=== PATIENT | female | born 1940 | race African-American/Black ===

== ENCOUNTER 2019-10-01 05:20 | Day surgery (SDC) | payer MEDICARE, MEDICAID ==
[~2019-10-01] VITALS: Ht 160 cm; Wt 49.0 kg
[~2019-10-01 05:20] MED LIST: AMLO-150 PO; ASPI81TA45 PO; ATOR10TA9 PO; HYDR-3237 PO; LANS15CA5 PO
[2019-10-01 06:16] VITALS: BP 141/93
[2019-10-01] MEDS ORDERED: LACTATED RINGERS 1,000 ML IV SCH (06:18)
[2019-10-01] MEDS ORDERED: CHLORHEXIDINE 15 ML UDC MM ONE (06:30)
[2019-10-01] MEDS ORDERED: LIDOCAINE-MPF 1%, 2ML INFIL ONE (06:30)
[2019-10-01] MEDS ORDERED: PROPOFOL 10 MG/ML, 20ML ONE ×2 (07:11→08:26)
[2019-10-01] MEDS ORDERED: OXYcodone 5 MG/5 ML ORAL.SOL UDC PO PRN (07:30)
[2019-10-01] MEDS ORDERED: LABETALOL 5MG/ML, 20ML IV PRN (07:30)
[2019-10-01] MEDS ORDERED: ALBUTEROL SULFATE 2.5 MG/3 ML NPPB PRN (07:30)
[2019-10-01] MEDS ORDERED: ONDANSETRON 2MG/ML, 2ML IVPush PRN (07:30)
[2019-10-01] MEDS ORDERED: FENTANYL PF 100 MCG/2ML IV PRN (07:30)
[2019-10-01] MEDS ORDERED: ACETAMINOPHEN 325 MG TABLET PO PRN (07:30)
[2019-10-01] MEDS ORDERED: hydrALAzine 20 MG/ML, 1ML IV PRN (07:30)
[2019-10-01] MEDS ORDERED: PIPERACILLIN/TAZO/PMX 3.375GM 50 ML ONE (08:21)
== END 2019-10-01 10:10 | disposition home or self-care (01) ==
LOC: OUT 05:20
PROVIDERS: ATTEND Internal Medicine Gastroenterology
DX: R93.3 Abnormal findings on diagnostic imaging of other parts of digestive tract (principal); Z11.59 Encounter for screening for other viral diseases; K86.1 Other chronic pancreatitis; K29.50 Unspecified chronic gastritis without bleeding; K31.89 Other diseases of stomach and duodenum; K21.0 Gastro-esophageal reflux disease with esophagitis; I10 Essential (primary) hypertension; E78.5 Hyperlipidemia, unspecified; J44.9 Chronic obstructive pulmonary disease, unspecified; I69.351 Hemiplegia and hemiparesis following cerebral infarction affecting right dominant side; Z79.899 Other long term (current) drug therapy; Z85.038 Personal history of other malignant neoplasm of large intestine
CPT/HCPCS: 43239; 43242; 88172; 88173; 88177; 88305; 88307; 93005; J2543; J2704; U0001

== ENCOUNTER 2019-10-14 17:54 | Inpatient (IN) | payer MEDICARE, MEDICAID ==
[~2019-10-14] VITALS: Ht 160 cm; Wt 50.7 kg
--- NOTE | 2019-10-14 18:30 | NUR ---
THIS IS A 79 YO FEMALE COMING IN WITH C/O WHITE/PALE STOOL WITH GENERALIZED ABD PAIN, DENIES N/V/CONSTIPATION. PATIENT HAS LABS DONE THIS AM AT [facility] SUGGESTING BILIARY BLOCKAGE OR GALLSTONES. PATIENT A&OX4, MONITORING IN PLACE, CALL LEON[facility] IN [facility].
[2019-10-14] MEDS ORDERED: SODIUM CHLORIDE 0.9% 1,000 ML IV ONE (18:40)
[2019-10-14] MEDS ORDERED: MORPHINE SULFATE 4 MG/ML, 1ML ONE (18:47)
[2019-10-14] MEDS ORDERED: ONDANSETRON 2MG/ML, 2ML ONE (18:47)
[2019-10-14 18:50] LABS: BASOPHILS # (AUTO) 0.04 x10^3/uL (0-0.1); BASOPHILS % (AUTO) 1 % (0-1); EOSINOPHILS # (AUTO) 0.19 x10^3/uL (0-0.4); EOSINOPHILS % (AUTO) 3 % (1-7); LYMPHOCYTES # (AUTO) 1.75 x10^3/uL (1-3.4); LYMPHOCYTES % (AUTO) 26 % (22-44); MD NO; MEAN CORPUSCULAR HEMOGLOBIN 31.4 pg (27.0-34.8); MEAN CORPUSCULAR HGB CONC 33.2 g/dL (32.4-35.8); MEAN CORPUSCULAR VOLUME 94.8 fL (80-100); MEAN PLATELET VOLUME 9.1 fL (7.4-10.4); MONOCYTES # (AUTO) 0.71 x10^3/uL (0.2-0.8); MONOCYTES % (AUTO) 11 % (2-9); NEUTROPHILS # (AUTO) 3.99 x10^3/uL (1.8-6.8); NEUTROPHILS % (AUTO) 60 % (42-75); PLATELET COUNT 311 x10^3/uL (130-400); RED CELL DISTRIBUTION WIDTH 15.2 % (9.6-15.2)
[2019-10-14] MEDS ORDERED: ONDANSETRON 2MG/ML, 2ML IVPush ONE (19:00)
[2019-10-14] MEDS ORDERED: MORPHINE SULFATE 4 MG/ML, 1ML IVPush PRN (19:00)
[2019-10-14] MEDS ORDERED: SODIUM CHLORIDE FLUSH 10ML SYR IVF ONE ×2 (19:00→19:30)
[2019-10-14 19:04] LABS: ALANINE AMINOTRANSFERASE 196 U/L (12-78); ALBUMIN 3.3 g/dL (3.4-5.0); ANION GAP 7 mmol/L (5-15); CALCIUM 9.5 mg/dL (8.5-10.1); CHLORIDE 107 mmol/L (98-107); CREATININE 1.19 mg/dL (0.55-1.02)
[2019-10-14 19:07] LABS: ALKALINE PHOSPHATASE 294 U/L (45-117); TOTAL PROTEIN 7.4 g/dL (6.4-8.2)
--- NOTE | 2019-10-14 19:10 | NUR ---
FERMÍN MONTES TO PLACE PIV. IVF STARTED. PATIENT MEDFICATED PER [facility]
--- NOTE | 2019-10-14 19:12 | NUR ---
2ND ATTEMPT FOR ULTRASOUND, PT UNAVAILABLE aa
--- NOTE | 2019-10-14 19:55 | NUR ---
ULTRASOUND IN ROOM
--- NOTE | 2019-10-14 20:29 | NUR ---
PATIENT RESTING ON GURNEY, RESPIRATIONS EVEN AND UNLABORED. VSS, NADN
[2019-10-14] MEDS ORDERED: ENOXAPARIN 40 MG/0.4 ML SQ SCH (21:30)
[2019-10-14] MEDS ORDERED: LACTATED RINGERS 1,000 ML IV SCH (21:30)
[2019-10-14] MEDS ORDERED: hydrALAzine 20 MG/ML, 1ML IVPush PRN (21:30)
[2019-10-14] MEDS ORDERED: ACETAMINOPHEN 325 MG TABLET PO PRN (21:30)
[2019-10-14 21:36] LABS: ALBUMIN 3.3 g/dL (3.4-5.0); BILIRUBIN, DIRECT 2.4 mg/dL (0.1-0.2)
[2019-10-14 21:38] LABS: BILIRUBIN,TOTAL 3.9 mg/dL (0.2-1.0); TOTAL PROTEIN 7.4 g/dL (6.4-8.2)
--- NOTE | 2019-10-14 22:13 | NUR ---
ATTEMPTED TO CALL REPORT X1
[2019-10-14 22:23] LABS: BILIRUBIN,INDIRECT 1.5 mg/dL (0.0-2.0)
--- NOTE | 2019-10-14 22:37 | NUR ---
TASK RN: REPORT TO FERMÍN LOPEZ ON FLOOR. PT PREPARED FOR TRANSPORT.
[2019-10-14] MEDS: NICOTINE 14MG/24 HR PATCH.TD24 TD SCH (23:24)
[2019-10-14] MEDS: NS + 20MEQ KCL 1,000 ML IV SCH (23:55)
[2019-10-15 00:07] VITALS: BP 144/80
[2019-10-15] MEDS ORDERED: ALBUTEROL SULFATE 2.5 MG/3 ML NPPB PRN (01:00)
[2019-10-15] MEDS: NS + 20MEQ KCL 1,000 ML IV SCH ×2 (05:53→21:03)
[2019-10-15 06:07] LABS: BASOPHILS # (AUTO) 0.05 x10^3/uL (0-0.1); BASOPHILS % (AUTO) 1 % (0-1); EOSINOPHILS # (AUTO) 0.21 x10^3/uL (0-0.4); EOSINOPHILS % (AUTO) 4 % (1-7); LYMPHOCYTES # (AUTO) 1.81 x10^3/uL (1-3.4); LYMPHOCYTES % (AUTO) 34 % (22-44); MD NO; MEAN CORPUSCULAR HEMOGLOBIN 31.5 pg (27.0-34.8); MEAN CORPUSCULAR HGB CONC 32.5 g/dL (32.4-35.8); MEAN CORPUSCULAR VOLUME 96.8 fL (80-100); MONOCYTES # (AUTO) 0.54 x10^3/uL (0.2-0.8); MONOCYTES % (AUTO) 10 % (2-9); NEUTROPHILS # (AUTO) 2.81 x10^3/uL (1.8-6.8); NEUTROPHILS % (AUTO) 52 % (42-75); PLATELET COUNT 298 x10^3/uL (130-400); RED BLOOD COUNT 4.27 x10^6/uL (3.82-5.3); RED CELL DISTRIBUTION WIDTH 15.2 % (9.6-15.2)
[2019-10-15 06:19] LABS: CHLORIDE 114 mmol/L (98-107)
[2019-10-15 06:32] LABS: ALANINE AMINOTRANSFERASE 171 U/L (12-78); ALBUMIN 2.9 g/dL (3.4-5.0); ALKALINE PHOSPHATASE 265 U/L (45-117); ANION GAP 9 mmol/L (5-15); BILIRUBIN,TOTAL 3.4 mg/dL (0.2-1.0); CALCIUM 8.6 mg/dL (8.5-10.1); CREATININE 1.12 mg/dL (0.55-1.02); TOTAL PROTEIN 6.8 g/dL (6.4-8.2)
[2019-10-15 06:40] VITALS: BP 125/85
[2019-10-15] MEDS ORDERED: PANTOPRAZOLE 40 MG IV IVPush SCH (07:30)
[2019-10-15] MEDS ORDERED: HEPARIN 5,000 UNITS/ML, 1ML SQ SCH (08:30)
[2019-10-15] MEDS ORDERED: MAGNESIUM SULFATE PMX 2GM/50ML 50 ML IV ONE (08:30)
[2019-10-15] MEDS ORDERED: GADOTERATE 7.5 MMOL/15 ML VIAL ONE (09:11)
[2019-10-15] MEDS: morphine SULFATE 10 MG/ML, 1ML IVPush PRN ×2 (15:06→21:03)
[2019-10-15 15:13] VITALS: BP 155/89
[2019-10-15] MEDS: NICOTINE 14MG/24 HR PATCH.TD24 TD SCH (21:03)
[2019-10-15 21:10] VITALS: BP 152/87
[2019-10-16 01:32] VITALS: BP 145/80
[2019-10-16] MEDS: NS + 20MEQ KCL 1,000 ML IV SCH (05:10)
[2019-10-16 06:10] LABS: BASOPHILS # (AUTO) 0.04 x10^3/uL (0-0.1); BASOPHILS % (AUTO) 1 % (0-1); EOSINOPHILS # (AUTO) 0.14 x10^3/uL (0-0.4); EOSINOPHILS % (AUTO) 2 % (1-7); LYMPHOCYTES % (AUTO) 21 % (22-44); MD NO; MEAN CORPUSCULAR HEMOGLOBIN 31.5 pg (27.0-34.8); MEAN CORPUSCULAR HGB CONC 32.9 g/dL (32.4-35.8); MEAN CORPUSCULAR VOLUME 95.7 fL (80-100); MEAN PLATELET VOLUME 9.6 fL (7.4-10.4); MONOCYTES # (AUTO) 0.52 x10^3/uL (0.2-0.8); MONOCYTES % (AUTO) 9 % (2-9); NEUTROPHILS # (AUTO) 3.79 x10^3/uL (1.8-6.8); NEUTROPHILS % (AUTO) 67 % (42-75); PLATELET COUNT 243 x10^3/uL (130-400); RED BLOOD COUNT 4.23 x10^6/uL (3.82-5.3); RED CELL DISTRIBUTION WIDTH 14.9 % (9.6-15.2)
[2019-10-16 06:19] LABS: CHLORIDE 109 mmol/L (98-107)
[2019-10-16 06:26] LABS: ALANINE AMINOTRANSFERASE 150 U/L (12-78); ALBUMIN 2.9 g/dL (3.4-5.0); ALKALINE PHOSPHATASE 268 U/L (45-117); ANION GAP 11 mmol/L (5-15); BILIRUBIN,TOTAL 3.8 mg/dL (0.2-1.0); CALCIUM 8.8 mg/dL (8.5-10.1); CREATININE 0.85 mg/dL (0.55-1.02); TOTAL PROTEIN 6.8 g/dL (6.4-8.2)
[2019-10-16 07:03] VITALS: BP 138/84
[2019-10-16] MEDS: morphine SULFATE 10 MG/ML, 1ML IVPush PRN ×3 (07:46→19:58)
[2019-10-16 12:30] VITALS: BP 163/80
[2019-10-16] MEDS: SODIUM CHLORIDE 0.9% 1,000 ML IV SCH ×2 (15:25→23:15)
[2019-10-16 19:07] VITALS: BP_SYST 166; BP_SYST 170; BP_DIAS 100; BP_DIAS 93
[2019-10-16 20:18] VITALS: BP 157/89
[2019-10-16] MEDS: NICOTINE 14MG/24 HR PATCH.TD24 TD SCH (22:11)
[2019-10-17 00:36] VITALS: BP 155/95
[2019-10-17] MEDS: morphine SULFATE 10 MG/ML, 1ML IVPush PRN ×3 (03:00→19:55)
[2019-10-17 06:46] VITALS: BP 131/85
[2019-10-17] MEDS: SODIUM CHLORIDE 0.9% 1,000 ML IV SCH ×3 (07:00→22:58)
[2019-10-17] MEDS ORDERED: FENTANYL PF 100 MCG/2ML ONE (07:15)
[2019-10-17] MEDS ORDERED: OXYcodone 5 MG/5 ML ORAL.SOL UDC PO PRN (07:30)
[2019-10-17] MEDS ORDERED: LORazepam 2 MG/ML, 1ML IVPush PRN (07:30)
[2019-10-17] MEDS ORDERED: ALBUTEROL SULFATE 2.5 MG/3 ML NPPB PRN (07:30)
[2019-10-17] MEDS ORDERED: PROMETHAZINE 25 MG/ML, 1ML IVPush PRN (07:30)
[2019-10-17] MEDS ORDERED: morphine SULFATE 10 MG/ML, 1ML IVPush PRN (07:30)
[2019-10-17] MEDS ORDERED: LABETALOL 5MG/ML, 20ML IV PRN (07:30)
[2019-10-17] MEDS ORDERED: FENTANYL PF 100 MCG/2ML IV PRN (07:30)
[2019-10-17] MEDS ORDERED: MEPERIDINE/PF 25MG/0.5ML IVPush PRN (07:30)
[2019-10-17] MEDS ORDERED: hydrALAzine 20 MG/ML, 1ML IV PRN (07:30)
[2019-10-17] MEDS ORDERED: SUCCINYLCHOLINE 20 MG/ML, 10ML ONE (07:40)
[2019-10-17] MEDS ORDERED: DEXAMETHASONE 4 MG/ML, 1ML ONE ×2 (07:40→08:20)
[2019-10-17] MEDS ORDERED: PROPOFOL 10 MG/ML, 20ML ONE (08:20)
[2019-10-17] MEDS ORDERED: LIDOCAINE-MPF 2% ,5ML ONE (08:20)
[2019-10-17] MEDS ORDERED: ONDANSETRON 2MG/ML, 2ML ONE (08:20)
[2019-10-17] MEDS ORDERED: INDOMETHACIN 50 MG SUPP.RECT ONE (09:18)
[2019-10-17] MEDS ORDERED: OMNIPAQUE 350 MG/ML, 50 ML BOTTLE ONE (09:25)
[2019-10-17] MEDS ORDERED: INDOMETHACIN 50 MG SUPP.RECT PR ONE (10:00)
[2019-10-17] MEDS: AMLODIPINE 5 MG TABLET PO SCH (11:43)
[2019-10-17 14:40] VITALS: BP 148/90
[2019-10-17] MEDS: ONDANSETRON 2MG/ML, 2ML IVPush PRN (15:28)
[2019-10-17 19:07] VITALS: BP 146/94
[2019-10-17] MEDS ORDERED: ONDANSETRON 2MG/ML, 2ML IVPush ONE (19:35)
[2019-10-17] MEDS ORDERED: CALCIUM CARBONATE 500 MG TAB.CHEW PO ONE (19:35)
[2019-10-17] MEDS: ATORVASTATIN 10 MG TABLET PO SCH (20:33)
[2019-10-17] MEDS: NICOTINE 14MG/24 HR PATCH.TD24 TD SCH (20:34)
[2019-10-18 00:25] VITALS: BP 113/71
[2019-10-18] MEDS: ONDANSETRON 2MG/ML, 2ML IVPush PRN (04:04)
[2019-10-18 09:11] VITALS: BP 134/90
[2019-10-18 09:32] VITALS: BP 134/90
[2019-10-18] MEDS: SODIUM CHLORIDE 0.9% 1,000 ML IV SCH (09:52)
[2019-10-18] MEDS: AMLODIPINE 5 MG TABLET PO SCH (09:52)
[2019-10-18] MEDS: morphine SULFATE 10 MG/ML, 1ML IVPush PRN (10:05)
[2019-10-18 11:22] LABS: ALBUMIN 2.6 g/dL (3.4-5.0)
[2019-10-18 11:27] LABS: BILIRUBIN, DIRECT 1.2 mg/dL (0.1-0.2); BILIRUBIN,INDIRECT 1.3 mg/dL (0.0-2.0); BILIRUBIN,TOTAL 2.5 mg/dL (0.2-1.0); TOTAL PROTEIN 6.3 g/dL (6.4-8.2)
[2019-10-18] MEDS ORDERED: MAGNESIUM SULFATE PMX 2GM/50ML 50 ML IV ONE (14:00)
[2019-10-18] MEDS ORDERED: ALUMINUM/MAG/SIMETHICONE 30 ML UDC PO PRN (15:00)
[2019-10-18] MEDS: OXYcodone IR 5MG TABLET PO PRN ×2 (15:20→18:41)
[2019-10-18 18:50] VITALS: BP 121/82
[2019-10-18] MEDS: NICOTINE 14MG/24 HR PATCH.TD24 TD SCH (20:07)
[2019-10-18] MEDS: ATORVASTATIN 10 MG TABLET PO SCH (20:07)
[2019-10-19 00:06] VITALS: BP 108/79
[2019-10-19] MEDS: OMEPRAZOLE 10 MG CAPSULE.DR PO SCH (05:48)
[2019-10-19 07:28] VITALS: BP 118/81
[2019-10-19] MEDS: AMLODIPINE 5 MG TABLET PO SCH (08:23)
[2019-10-19] MEDS: ONDANSETRON 2MG/ML, 2ML IVPush PRN ×2 (11:32→17:20)
[2019-10-19 11:46] LABS: ALANINE AMINOTRANSFERASE 122 U/L (12-78); ALBUMIN 2.4 g/dL (3.4-5.0); ANION GAP 7 mmol/L (5-15); CALCIUM 8.7 mg/dL (8.5-10.1); CHLORIDE 108 mmol/L (98-107); CREATININE 0.81 mg/dL (0.55-1.02)
[2019-10-19 11:48] LABS: ALKALINE PHOSPHATASE 225 U/L (45-117); BILIRUBIN,TOTAL 1.7 mg/dL (0.2-1.0); TOTAL PROTEIN 5.9 g/dL (6.4-8.2)
[2019-10-19 12:39] VITALS: BP 114/71
[2019-10-19 19:13] VITALS: BP 124/77
[2019-10-19] MEDS: NICOTINE 14MG/24 HR PATCH.TD24 TD SCH (20:04)
[2019-10-19] MEDS: ATORVASTATIN 10 MG TABLET PO SCH (20:04)
[2019-10-20 00:06] VITALS: BP 124/79
[2019-10-20] MEDS: OMEPRAZOLE 10 MG CAPSULE.DR PO SCH (05:26)
[2019-10-20 05:33] LABS: ALBUMIN 2.5 g/dL (3.4-5.0); ANION GAP 5 mmol/L (5-15); CALCIUM 8.7 mg/dL (8.5-10.1); CHLORIDE 108 mmol/L (98-107)
[2019-10-20 05:37] LABS: ALANINE AMINOTRANSFERASE 115 U/L (12-78); ALKALINE PHOSPHATASE 210 U/L (45-117); BILIRUBIN,TOTAL 1.8 mg/dL (0.2-1.0); CREATININE 0.82 mg/dL (0.55-1.02); TOTAL PROTEIN 6.1 g/dL (6.4-8.2)
[2019-10-20 07:31] VITALS: BP 134/88
[2019-10-20] MEDS: AMLODIPINE 5 MG TABLET PO SCH (08:29)
== END 2019-10-20 14:26 | disposition home or self-care (01) | DRG 438 ==
LOC: ED 21:02 → EDIP 21:08 → 3N 23:00
PROVIDERS: ADMIT Hospitalist; ATTEND Internal Medicine
PROC: 0F7D8DZ Dilation of Pancreatic Duct with Intraluminal Device, Via Natural or Artificial Opening Endoscopic (ICD-10-PCS; 2019-10-17)
PROC: BF111ZZ Fluoroscopy of Biliary and Pancreatic Ducts using Low Osmolar Contrast (ICD-10-PCS; 2019-10-17)
PROC: 0F798DZ Dilation of Common Bile Duct with Intraluminal Device, Via Natural or Artificial Opening Endoscopic (ICD-10-PCS; 2019-10-17)
PROC: 0FD98ZX Extraction of Common Bile Duct, Via Natural or Artificial Opening Endoscopic, Diagnostic (ICD-10-PCS; principal; 2019-10-17 07:30)
DX: K85.10 Biliary acute pancreatitis without necrosis or infection (principal); K83.1 Obstruction of bile duct; J44.1 Chronic obstructive pulmonary disease with (acute) exacerbation; K86.2 Cyst of pancreas; C25.9 Malignant neoplasm of pancreas, unspecified; I69.351 Hemiplegia and hemiparesis following cerebral infarction affecting right dominant side; K21.9 Gastro-esophageal reflux disease without esophagitis; E87.6 Hypokalemia; E83.42 Hypomagnesemia; I10 Essential (primary) hypertension; K29.70 Gastritis, unspecified, without bleeding; E78.5 Hyperlipidemia, unspecified; Z20.828 Contact with and (suspected) exposure to other viral communicable diseases; F17.210 Nicotine dependence, cigarettes, uncomplicated; K82.8 Other specified diseases of gallbladder; Z90.710 Acquired absence of both cervix and uterus; Z79.84 Long term (current) use of oral hypoglycemic drugs; Z79.82 Long term (current) use of aspirin
CPT/HCPCS: 36415; 74183; 74330; 76700; 80053; 80076; 82378; 83036; 83690; 83735; 84100; 84443; 85025; 86301; 87635; 88112; 93005; 96361; 96374; 96375; G0378; J1100; J1644; J1650; J2405; J2704; J3010; J3480; Q9967; A9575; C1769; C1894; C2625; C9113; J0330; J2270; J3475; J7030

== ENCOUNTER 2019-11-19 06:14 | Day surgery (SDC) | payer MEDICARE, MEDICAID ==
[~2019-11-19] VITALS: Ht 160 cm; Wt 45.9 kg
[2019-11-19] MEDS ORDERED: LACTATED RINGERS 1,000 ML IV SCH (06:38)
[2019-11-19 06:57] VITALS: BP 116/82
[2019-11-19] MEDS ORDERED: CHLORHEXIDINE 15 ML UDC MM ONE (07:00)
[2019-11-19] MEDS ORDERED: PIPERACILLIN/TAZO/PMX 3.375GM 50 ML IV ONE (07:00)
[2019-11-19] MEDS ORDERED: FENTANYL PF 100 MCG/2ML ONE (07:55)
[2019-11-19] MEDS ORDERED: PHENYLEPHRINE 10 MG/ML ONE (08:05)
[2019-11-19] MEDS ORDERED: DEXAMETHASONE 4 MG/ML, 1ML ONE ×2 (08:05→08:35)
[2019-11-19] MEDS ORDERED: SUCCINYLCHOLINE 20 MG/ML, 10ML ONE (08:05)
[2019-11-19 08:07] LABS: BASOPHILS # (AUTO) 0.05 x10^3/uL (0-0.1); BASOPHILS % (AUTO) 1 % (0-1); EOSINOPHILS # (AUTO) 0.19 x10^3/uL (0-0.4); EOSINOPHILS % (AUTO) 4 % (1-7); LYMPHOCYTES # (AUTO) 1.19 x10^3/uL (1-3.4); LYMPHOCYTES % (AUTO) 22 % (22-44); MD NO; MEAN CORPUSCULAR HEMOGLOBIN 31.1 pg (27.0-34.8); MEAN PLATELET VOLUME 8.5 fL (7.4-10.4); MONOCYTES # (AUTO) 0.47 x10^3/uL (0.2-0.8); MONOCYTES % (AUTO) 9 % (2-9); NEUTROPHILS # (AUTO) 3.59 x10^3/uL (1.8-6.8); NEUTROPHILS % (AUTO) 65 % (42-75); PLATELET COUNT 280 x10^3/uL (130-400); RED BLOOD COUNT 3.88 x10^6/uL (3.82-5.3); RED CELL DISTRIBUTION WIDTH 14.7 % (9.6-15.2)
[2019-11-19 08:19] LABS: ALANINE AMINOTRANSFERASE 18 U/L (12-78); ANION GAP 11 mmol/L (5-15); CALCIUM 9.6 mg/dL (8.5-10.1); CHLORIDE 113 mmol/L (98-107); CREATININE 1.43 mg/dL (0.55-1.02)
[2019-11-19 08:21] LABS: ALKALINE PHOSPHATASE 102 U/L (45-117); BILIRUBIN,TOTAL 0.8 mg/dL (0.2-1.0); TOTAL PROTEIN 6.9 g/dL (6.4-8.2)
[2019-11-19] MEDS ORDERED: hydrALAzine 20 MG/ML, 1ML IV PRN (08:30)
[2019-11-19] MEDS ORDERED: FENTANYL PF 100 MCG/2ML IV PRN (08:30)
[2019-11-19] MEDS ORDERED: PROMETHAZINE 25 MG/ML, 1ML IVPush PRN (08:30)
[2019-11-19] MEDS ORDERED: MIDAZOLAM 1 MG/ML, 2ML IV PRN (08:30)
[2019-11-19] MEDS ORDERED: ALBUTEROL SULFATE 2.5 MG/3 ML NPPB PRN (08:30)
[2019-11-19] MEDS ORDERED: LABETALOL 5MG/ML, 20ML IV PRN (08:30)
[2019-11-19] MEDS ORDERED: OXYcodone 5 MG/5 ML ORAL.SOL UDC PO PRN (08:30)
[2019-11-19] MEDS ORDERED: HYDROmorphone 1 MG/ML, 1ML INJ IVPush PRN (08:30)
[2019-11-19] MEDS ORDERED: ONDANSETRON 2MG/ML, 2ML ONE (08:35)
[2019-11-19] MEDS ORDERED: PROPOFOL 10 MG/ML, 20ML ONE (08:35)
[2019-11-19] MEDS ORDERED: OMNIPAQUE 350 MG/ML, 50 ML BOTTLE ONE (09:15)
[2019-11-19] MEDS ORDERED: OXYcodone 5 MG/5 ML ORAL.SOL UDC ONE (09:48)
== END 2019-11-19 11:25 | disposition home or self-care (01) ==
LOC: OUT 06:14
PROVIDERS: ATTEND Internal Medicine Gastroenterology
DX: K83.1 Obstruction of bile duct (principal); Z11.59 Encounter for screening for other viral diseases; K85.90 Acute pancreatitis without necrosis or infection, unspecified; K44.9 Diaphragmatic hernia without obstruction or gangrene; Z79.899 Other long term (current) drug therapy
CPT/HCPCS: 36415; 43242; 43261; 43276; 74328; 80053; 85025; 86301; 87635; 88112; 88172; 88173; 88177; 88307; C1725; C1769; C1894; C2625; J0330; J1100; J2370; J2405; J2704; J3010; J7120; Q9967

== ENCOUNTER 2020-01-27 09:57 | Inpatient (IN) | payer MEDICARE, MEDICAID ==
[~2020-01-27] VITALS: Ht 160 cm; Wt 47.0 kg
[2020-01-27] MEDS ORDERED: SODIUM CHLORIDE 0.9% 1,000 ML IV ONE (10:30)
[2020-01-27 10:41] LABS: BASOPHILS % (AUTO) 0 % (0-1); EOSINOPHILS % (AUTO) 0 % (1-7); LYMPHOCYTES % (AUTO) 5 % (22-44); MEAN CORPUSCULAR HEMOGLOBIN 29.5 pg (27.0-34.8); MEAN CORPUSCULAR HGB CONC 32.6 g/dL (32.4-35.8); MEAN PLATELET VOLUME 9.3 fL (7.4-10.4); MONOCYTES % (AUTO) 4 % (2-9); NEUTROPHILS % (AUTO) 91 % (42-75); PLATELET COUNT 399 x10^3/uL (130-400); RED BLOOD COUNT 3.37 x10^6/uL (3.82-5.3); RED CELL DISTRIBUTION WIDTH 15.3 % (9.6-15.2)
[2020-01-27 10:50] LABS: ALANINE AMINOTRANSFERASE 41 U/L (12-78); ALBUMIN 2.2 g/dL (3.4-5.0); ANION GAP 10 mmol/L (5-15); CALCIUM 9.6 mg/dL (8.5-10.1); CHLORIDE 112 mmol/L (98-107); CREATININE 2.41 mg/dL (0.55-1.02)
[2020-01-27 10:54] LABS: ALKALINE PHOSPHATASE 399 U/L (45-117); BILIRUBIN,TOTAL 2.4 mg/dL (0.2-1.0); TOTAL PROTEIN 7.6 g/dL (6.4-8.2); TROPONIN I < 0.015 ng/mL (0.000-0.045)
[2020-01-27 11:09] LABS: ANISOCYTOSIS 1+; MD MORPH REVIEW ONLY
[2020-01-27 11:10] LABS: <PLATELET ESTIMATE> ADEQUATE; LARGE PLATELETS 1+; TOXIC GRAN 1+
[2020-01-27 11:12] LABS: HYPOCHROMIA 1+
--- NOTE | 2020-01-27 11:24 | NUR ---
PIV started, fluids infusing.
--- NOTE | 2020-01-27 12:03 | NUR ---
Straight cath unsuccessful, no UO. ERP aware.
--- NOTE | 2020-01-27 12:10 | NUR ---
Pt BIB [facility] from home for failure to thrive. Pt arrives weak, cachectic, difficult to understand. Per EMS, pt has not been eating and is unable to ambulate.
[2020-01-27] MEDS ORDERED: HYDR-2995 PO (12:13)
[2020-01-27] MEDS ORDERED: DOXYCYCLINE 100 MG in DEXTROSE 5% 250 ML IV SCH (12:30)
[2020-01-27] MEDS ORDERED: CEFTRIAXONE PMX 1GM/50ML 50 ML IV ONE (12:30)
[2020-01-27] MEDS ORDERED: CEFTRIAXONE PMX 1GM/50ML 50 ML ONE (13:00)
--- NOTE | 2020-01-27 13:16 | NUR ---
CX drawn, ABX infusing. Pt incontinent of urine, linens changed, provided with new blankets. VS updated.
[2020-01-27] MEDS ORDERED: ACETAMINOPHEN 325 MG TABLET PO PRN (14:00)
[2020-01-27] MEDS ORDERED: SENNA/DOCUSATE TABLET PO PRN (14:30)
[2020-01-27] MEDS ORDERED: ONDANSETRON 2MG/ML, 2ML IVPush PRN (14:30)
[2020-01-27] MEDS ORDERED: ONDANSETRON 4 MG TABLET PO PRN (14:30)
[2020-01-27] MEDS ORDERED: POLYETHYLENE GLYCOL 17 GM PACKET NG PRN (14:30)
--- NOTE | 2020-01-27 15:27 | NUR ---
Report provided to [facility]
[2020-01-27 15:44] VITALS: BP 138/90
[2020-01-27] MEDS: LACTATED RINGERS 1,000 ML IV SCH (17:00)
[2020-01-27] MEDS: HEPARIN 5,000 UNITS/ML, 1ML SQ SCH (17:01)
[2020-01-27 21:47] VITALS: BP 94/66
[2020-01-27] MEDS: DOXYCYCLINE 100MG TABLET PO SCH (21:53)
[2020-01-27] MEDS: OXYcodone IR 5MG TABLET PO PRN (22:20)
[2020-01-28 00:07] LABS: MICROSCOPIC INDICATED
[2020-01-28] MEDS: HEPARIN 5,000 UNITS/ML, 1ML SQ SCH ×3 (01:57→16:52)
[2020-01-28] MEDS: LACTATED RINGERS 1,000 ML IV SCH ×3 (01:58→22:03)
[2020-01-28 03:17] VITALS: BP 98/70
[2020-01-28 06:47] LABS: ALBUMIN 1.8 g/dL (3.4-5.0); ANION GAP 10 mmol/L (5-15); CALCIUM 8.6 mg/dL (8.5-10.1); CHLORIDE 112 mmol/L (98-107)
[2020-01-28 06:50] LABS: CREATININE 2.32 mg/dL (0.55-1.02)
[2020-01-28 06:51] LABS: ALANINE AMINOTRANSFERASE 44 U/L (12-78); ALKALINE PHOSPHATASE 337 U/L (45-117); BILIRUBIN,TOTAL 2.6 mg/dL (0.2-1.0); TOTAL PROTEIN 6.2 g/dL (6.4-8.2)
[2020-01-28 07:00] VITALS: BP 100/71
[2020-01-28 07:17] LABS: MEAN CORPUSCULAR HEMOGLOBIN 29.7 pg (27.0-34.8); MEAN CORPUSCULAR HGB CONC 32.8 g/dL (32.4-35.8); MEAN PLATELET VOLUME 10.7 fL (7.4-10.4); PLATELET COUNT 320 x10^3/uL (130-400); RED BLOOD COUNT 2.87 x10^6/uL (3.82-5.3); RED CELL DISTRIBUTION WIDTH 15.1 % (9.6-15.2)
[2020-01-28 07:39] LABS: MD YES
[2020-01-28 07:40] LABS: BAND#(MANUAL) 0.96 x10^3/uL; BANDS%(MANUAL) 7 % (0-7); LYMPHS% (MANUAL) 8 % (22-44); MONOS#(MANUAL) 0.55 x10^3/uL (0.3-2.7); MONOS% (MANUAL) 4 % (2-9); SEGS% (MANUAL) 81 % (42-75)
[2020-01-28 07:41] LABS: ANISOCYTOSIS 1+; ECHINOCYTES 1+; HYPOCHROMIA 1+; OVALOCYTES 1+
[2020-01-28 07:42] LABS: <PLATELET ESTIMATE> ADEQUATE; LARGE PLATELETS 1+; TOXIC GRAN 1+
[2020-01-28] MEDS: CEFTRIAXONE PMX 2GM/50ML 50 ML IVPB SCH (08:00)
[2020-01-28] MEDS: DOXYCYCLINE 100MG TABLET PO SCH ×2 (08:01→20:54)
[2020-01-28] MEDS ORDERED: MORPHINE SULFATE 4 MG/ML, 1ML IVPush PRN (10:00)
[2020-01-28] MEDS: OXYcodone IR 5MG TABLET PO PRN ×2 (12:16→16:50)
[2020-01-28] MEDS ORDERED: CEFTRIAXONE PMX 1GM/50ML 50 ML IV SCH (13:00)
[2020-01-28 14:53] VITALS: BP 109/72
[2020-01-28 20:57] VITALS: BP 102/70
[2020-01-29] MEDS: HEPARIN 5,000 UNITS/ML, 1ML SQ SCH ×3 (01:00→16:33)
[2020-01-29 02:09] VITALS: BP 88/59
[2020-01-29 05:49] LABS: ALANINE AMINOTRANSFERASE 41 U/L (12-78); ANION GAP 11 mmol/L (5-15); BASOPHILS % (AUTO) 1 % (0-1); CALCIUM 9.3 mg/dL (8.5-10.1); CHLORIDE 110 mmol/L (98-107); CREATININE 2.46 mg/dL (0.55-1.02); EOSINOPHILS % (AUTO) 1 % (1-7); LYMPHOCYTES % (AUTO) 5 % (22-44); MEAN CORPUSCULAR HEMOGLOBIN 29.5 pg (27.0-34.8); MEAN CORPUSCULAR HGB CONC 32.7 g/dL (32.4-35.8); MEAN PLATELET VOLUME 10.2 fL (7.4-10.4); MONOCYTES % (AUTO) 7 % (2-9); NEUTROPHILS % (AUTO) 88 % (42-75); PLATELET COUNT 409 x10^3/uL (130-400); RED BLOOD COUNT 3.39 x10^6/uL (3.82-5.3); RED CELL DISTRIBUTION WIDTH 15.2 % (9.6-15.2)
[2020-01-29 05:51] LABS: ALKALINE PHOSPHATASE 350 U/L (45-117); BILIRUBIN,TOTAL 1.7 mg/dL (0.2-1.0); TOTAL PROTEIN 7.4 g/dL (6.4-8.2)
[2020-01-29 06:38] LABS: MD NO
[2020-01-29 07:39] VITALS: BP 102/75
[2020-01-29] MEDS: DOXYCYCLINE 100MG TABLET PO SCH ×2 (08:36→19:57)
[2020-01-29] MEDS: CEFTRIAXONE PMX 2GM/50ML 50 ML IVPB SCH (08:36)
[2020-01-29] MEDS ORDERED: SODIUM BICARBONATE 650 MG TABLET PO ONE (10:00)
[2020-01-29] MEDS: LACTATED RINGERS 1,000 ML IV SCH ×2 (11:01→19:57)
[2020-01-29 13:21] VITALS: BP 120/87
[2020-01-29 19:59] VITALS: BP 109/75
[2020-01-30] MEDS: HEPARIN 5,000 UNITS/ML, 1ML SQ SCH ×3 (01:01→16:30)
[2020-01-30 02:00] VITALS: BP 121/81
[2020-01-30] MEDS: LACTATED RINGERS 1,000 ML IV SCH ×2 (05:55→15:38)
[2020-01-30] MEDS: CEFTRIAXONE PMX 2GM/50ML 50 ML IVPB SCH (08:25)
[2020-01-30] MEDS: SODIUM BICARBONATE 650 MG TABLET PO SCH ×2 (08:26→19:51)
[2020-01-30] MEDS: DOXYCYCLINE 100MG TABLET PO SCH ×2 (08:39→19:51)
[2020-01-30 14:44] VITALS: BP 119/88
[2020-01-30 19:49] VITALS: BP 122/80
[2020-01-31] MEDS: HEPARIN 5,000 UNITS/ML, 1ML SQ SCH ×2 (01:30→08:33)
[2020-01-31] MEDS: LACTATED RINGERS 1,000 ML IV SCH ×2 (01:30→11:30)
[2020-01-31 01:32] VITALS: BP 116/87
[2020-01-31 07:43] VITALS: BP 109/74
[2020-01-31] MEDS: CEFTRIAXONE PMX 2GM/50ML 50 ML IVPB SCH (08:33)
[2020-01-31] MEDS: SODIUM BICARBONATE 650 MG TABLET PO SCH (08:33)
[2020-01-31] MEDS: DOXYCYCLINE 100MG TABLET PO SCH (08:33)
[2020-01-31] MEDS ORDERED: CEFD300C37 PO (10:36)
[2020-01-31 13:43] VITALS: BP 133/85
== END 2020-01-31 16:05 | disposition home or self-care (01) | DRG 444 ==
LOC: ED 11:11 → EDIP 12:31 → 4NE 15:42
PROVIDERS: ADMIT Family Medicine; ATTEND Family Medicine
PROC: 0T9B70Z Drainage of Bladder with Drainage Device, Via Natural or Artificial Opening (ICD-10-PCS; principal; 2020-01-27)
DX: K83.1 Obstruction of bile duct (principal); J18.9 Pneumonia, unspecified organism; E43 Unspecified severe protein-calorie malnutrition; N17.9 Acute kidney failure, unspecified; Z68.1 Body mass index [BMI] 19.9 or less, adult; I69.351 Hemiplegia and hemiparesis following cerebral infarction affecting right dominant side; R78.81 Bacteremia; N13.30 Unspecified hydronephrosis; K86.9 Disease of pancreas, unspecified; Z66 Do not resuscitate; K21.9 Gastro-esophageal reflux disease without esophagitis; I10 Essential (primary) hypertension; D72.829 Elevated white blood cell count, unspecified; D64.9 Anemia, unspecified; B96.20 Unspecified Escherichia coli [E. coli] as the cause of diseases classified elsewhere; Z90.710 Acquired absence of both cervix and uterus; Z82.49 Family history of ischemic heart disease and other diseases of the circulatory system; Z83.3 Family history of diabetes mellitus
CPT/HCPCS: 36415; 71045; 76700; 80053; 81001; 83690; 83735; 83880; 84100; 84145; 84443; 84484; 85025; 86301; 87040; 87077; 87086; 87186; 93005; 96374; 99285; G0378; J0696; J1644; J7060; J7030; J7120